=== PATIENT | male | born 1960 | race Caucasian/White ===

== ENCOUNTER → 2017-09-13 | Outpatient (CLI) | payer OTHER ==
[~2017-09-13] MED LIST: OXYC1TAB3 PO; [UNRECOGNIZED DRUG - REMARK]
--- NOTE | 2017-09-13 12:52 | DIAGNOSTIC IMAGING REPORT ---
ORBIT RADIOGRAPHS 3 VIEWS HISTORY: pre-MRI screening. COMPARISON: None. FINDINGS: There are no radiopaque foreign bodies identified within the orbits. IMPRESSION: No radiopaque foreign bodies identified within the orbits. Electronically signed by: Elroy Miller M.D. 09/13/2017 12:50 PM Dictated Date/Time: 09/13/2017 12:50 PM
--- NOTE | 2017-09-13 14:00 | DIAGNOSTIC IMAGING REPORT ---
R UPPER EXT JOINT WITHOUT CLINICAL HISTORY: 57 years-old Male with RIGHT SHOULDER. Chronic right shoulder pain with limited range of motion COMPARISON: Chest radiograph 08/24/2012. TECHNIQUE: Multiplanar, multi sequence MRI of the right shoulder was performed without intravenous contrast. FINDINGS: ROTATOR CUFF: There is a large full-thickness tear of the anterior, mid and posterior supraspinatus tendon fibers measuring up to 1.9 x 2.1 cm in transverse and AP dimension. There is mild retraction of the tendon fibers extending to level of the mid humeral head. There is moderate tendinosis of the infraspinatus tendon with likely reactive edema tracking along the myotendinous fibers. No high-grade partial or full-thickness infraspinatus tendon tear. There is mild irregularity of the bursal fibers infraspinatus. No full-thickness tear of the subscapularis tendon. On images 16 and 17 of series 6 there is intermediate grade intrasubstance tearing of the subscapularis extending towards the myotendinous junction. No significant atrophy of the rotator cuff musculature. BICEPS TENDON: The long head biceps tendon is intact. There is moderate tendinosis of the intra-articular portion long head biceps tendon. The biceps senia and anchor are intact. LABRUM: There is tearing of both the anterior and posterior portions of the superior labrum. There is a tear of the anteroinferior quadrant labrum as noted on image 20 series 4 with adjacent 5 x 4 x 8 mm paralabral cyst, image 21 series 4. GLENOHUMERAL JOINT: There is mild glenohumeral osteoarthritis with marginal spurring. Small joint effusion. No intra-articular loose body identified. ACROMIOCLAVICULAR JOINT: There is moderate AC joint osteoarthritis with marginal spurring and capsular hypertrophy. The acromium has a gently curved undersurface. No evidence of os acromiale. Moderate subacromial/subdeltoid bursitis. OUTLET SPACES: The suprascapular notch and quadrilateral space are without obstructing or space occupying lesions. BONE MARROW: No focal abnormality, fracture or marrow occupying lesion. SOFT TISSUES: The periarticular soft tissues are unremarkable. IMPRESSION: 1. Large full-thickness tear of the supraspinatus tendon involves the anterior, mid and posterior fibers extending into the conjoined fibers. There is mild retraction as above without muscular atrophy. 2. Moderate infraspinatus tendinosis. 3. Intermediate grade intrasubstance tear of the subscapularis tendon along the myotendinous junction. 4. Moderate long head biceps tendinosis without tear. 5. Mild glenohumeral osteoarthritis with multifocal tearing of the labrum. 8 mm paralabral cyst noted adjacent to the anteroinferior labral tear. 6. Small joint effusion with subacromial/subdeltoid bursitis. The above report was generated using voice recognition software. It may contain grammatical, syntax or spelling errors. Electronically signed by: Sharan Lemus M.D. 09/13/2017 1:58 PM Dictated Date/Time: 09/13/2017 1:38 PM
== END | disposition home or self-care (01) ==
LOC: C.RADBC 12:36
PROVIDERS: ATTEND Orthopaedic Surgery
DX: M75.101 Unspecified rotator cuff tear or rupture of right shoulder, not specified as traumatic (principal); M75.91 Shoulder lesion, unspecified, right shoulder; M25.411 Effusion, right shoulder

== ENCOUNTER → 2017-09-28 | Day surgery (SDC) | payer OTHER ==
[2017-09-18 08:46] VITALS: Ht 175.3 cm; Wt 90.0 kg
[~2017-09-28] VITALS: Ht 175.3 cm; Wt 90.0 kg
[~2017-09-28] MED LIST changes: +ATROPINE SULFATE 0.1 MG/ML 5ML SYR IV PRN; +BUPIVACAINE/EPINEPHRINE 0.25% 1:200,000 30 ML VIAL ONE; +BUPIVACAINE/EPINEPHRINE 0.5% MPF 1:200,000 30 ML VIAL ONE; +CEFAZOLIN 2000MG IV PUSH 10 ML IV SCH; +CRANPOW PO; +CYAN100020 PO; +DEXAMETHASONE SOD INJ 4 MG/ML VIAL ONE; +EpHEDrine SULFATE INJ 50 MG/ML AMP IV PRN; +EpINEphrine INJ 1MG/ML AMP 1 MG/ML AMP ONE; +FENTANYL CITRATE INJ 50 MCG/1 ML 2 ML VIAL IV PRN; +FENTANYL CITRATE INJ 50 MCG/1 ML 2 ML VIAL ONE; +GLUCTAB7 PO; +KETO10TA PO; +LACTATED RINGER'S 1000ML 1,000 ML IV SCH; +LIDOCAINE HCL 2% 2 ML VIAL (20MG/ML) ONE; +MAGN500C PO; +MELO-84 PO; +MIDAZOLAM HCL 1 MG/ML 2ML VIAL ONE; +MULTTAB58 PO; +OMEG10007 PO; +ONDANSETRON INJ 2 MG/ML 2 ML VIAL IV PRN; +ONDANSETRON INJ 2 MG/ML 2 ML VIAL ONE; +OXYC-57 PO; -OXYC1TAB3 PO; +OXYCODONE/ACETAMINOPHEN 5-325 TAB PO PRN; +PROMETHAZINE HCL INJ 6.25 MG in SODIUM CHLORIDE 0.9% 50ML 50 ML IV PRN; +PROPOFOL IV EMULSION 10 MG/ML 20 ML VIAL IV ONE; +PYRI100T4 PO; +SODIUM CHLORIDE 0.9% 1000ML 1,000 ML IV SCH; +TESTOSTERONE PO; +UNKNOWN MED PO; +VITA400C3 PO; +VITAMIN C PO; +[UNRECOGNIZED DRUG - OTHER] PO; -[UNRECOGNIZED DRUG - REMARK]
--- NOTE | 2017-09-28 10:52 | History & Physical Bridge - SC ---
H&P Re-Evaluation Bridge Note: I have examined the patient, reviewed the History & Physical and in the interval since the performance of the History & Physical I have noted the following changes of clinical significance: No changes noted
--- NOTE | 2017-09-28 13:36 | [facility] Post Operative Brief Note ---
Immediate Operative Summary Operative Date Sep 28, 2017. Pre-Operative Diagnosis Rotator Cuff Tear, Shoulder Pain Post-Operative Diagnosis same Procedure(s) Performed Right Sholder Arthroscopy Medium Rotator Cuff Repair Surgeon Dr Sebastian Clinical Psychologist Private Practice Surgeon(s) BRUCE Domínguez Estimated Blood Loss 5ml Findings as above Specimens none Complication(s) None Disposition Recovery Room / PACU
[2017-09-28 13:46] VITALS: TEMP 36.4
--- NOTE | 2017-09-28 13:46 | Discharge Instructions-SurgCtr ---
Discharge Instructions Date of Service Sep 28, 2017. Visit Reason for Visit: Rotator Cuff Tear, Shoulder Pain Discharge Discharge Diagnosis / Problem: SAME ABOVE Discharge Goals Goal(s): Decrease discomfort, Improve function Medications Stopped Medications Name(s): Vit B12, fish oil, mobic, glucosamine, multivitamin, vitamin e, vit b6, cranberry, vit c, and testosterone stopped-last doses 09/18/17 Restart Stopped Medication(s): MAY RESTART ALL ON 09/28/2017 Activity Recommendations Activity Limitations: as noted below Lifting Limitations: until after follow-up appointment Exercise/Sports Limitations: until after follow-up appointment Shower/Bathe: tomorrow Anesthesia . Post Anesthesia Instructions: If you have had General Anesthesia or IV Sedation: * Do not drive today. * Resume driving when surgeon permits. * Do not make important decisions or sign legal documents today. * Call surgeon for: 1. Temperature elevations greater than 101 degrees F. 2. Uncontrollable pain. 3. Excessive bleeding. 4. Persistent nausea and vomiting. 5. Medication intolerance (nausea, vomiting or rash). * For nausea and vomiting use only clear liquids such as: tea, soda, bouillon until nausea subsides, then gradually increase diet as tolerated. * If you have any concerns or questions, call your surgeon's office. If physician is unavailable and it is an emergency, call 911 or go to the nearest emergency room. . Instructions / Follow-Up Instructions / Follow-Up MEDICATIONS: * Resume previous medications unless instructed otherwise by your surgeon. * Always take pain medication on a full stomach or with food to avoid upset stomach. * Do not drink alcohol or drive while taking narcotics. * Ibuprofen or Tylenol may be taken if narcotic not needed. SPECIAL CARE INSTRUCTIONS: __ None _X_ Keep extremity elevated and iced x 48 hours; apply ice 20-30 minutes 8-10 times/day. May remove at night. __ Sling __24 hrs/day __ Remove at night _X_ Shoulder Immobilizer (MAY REMOVE AFTER 48 HOURS ONLY TO SHOWER AND FOR THERAPY) _X_ 24 hrs/day __ Remove at night _X_ Dressing __ Maintain until seen in office, may shower with plastic over site _X_ Remove dressings in 24-48 hours and then may shower _X_ Cover incisions with band-aids after showering __ Do not remove steri-strips Call physician if chills or temperature rises above 102 degrees or pain unrelieved by prescribed pain medications at . . Diet Recommendations Home Diet: no limitations Fluid Restriction: None Procedures Procedures Performed: Right Sholder Arthroscopy Medium Rotator Cuff Repair Pending Studies Studies pending at discharge: no Work Instructions Return To Work: after follow-up Lifting Limitations: NO LIFTING WITH RIGHT ARM Medical Emergencies . Who to Call and When: Medical Emergencies: If at any time you feel your situation is an emergency, please call 911 immediately. . Non-Emergent Contact Non-Emergency issues call your: Primary Care Provider Call Non-Emergent contact if: you have a fever, temperature is above 101.5 . . "Provider Documentation" section prepared by Chris Denton. .
--- NOTE | 2017-09-28 14:16 | OPERATIVE REPORT ---
DATE OF OPERATION: 09/28/2017 PREOPERATIVE DIAGNOSIS: Large right rotator cuff tear. POSTOPERATIVE DIAGNOSIS: Same. PROCEDURE: Right shoulder diagnostic arthroscopy with limited debridement, distal clavicle resection, acromioplasty and large rotator cuff repair. SURGEON: Dr. Pasha Sebastian. AIR SHOVEL OPERATOR: Eliseo Denton PA-C, whose assistance was necessary for positioning the arm and helping with instrumentation. ANESTHESIA: Sedation with a right interscalene nerve block. COMPLICATIONS: None. CONDITION: Stable to PACU. INDICATIONS: Alexei is a pleasant 57-year-old male who presented to my office with complaints of right shoulder pain. MRI and clinical examination were diagnostic for a large right rotator cuff tear. After failing conservative treatment, he elected to undergo arthroscopy. DESCRIPTION OF PROCEDURE: On 09/28/2017, he arrived at [facility] for the above procedure. He was seen in the preoperative holding area and the operative extremity was identified and signed. He was given appropriate antibiotic and a right interscalene nerve block. He was taken back to the operating room, laid on the table in supine position and put under basic sedation. The right shoulder was prepped and draped in sterile fashion. Time-out was done and the patient's operative extremity was properly identified. A scope was introduced into the posterior portal. Diagnostic arthroscopy showed no cartilage damage to the humeral head or the glenoid. There was some fraying of the anterior labrum. The biceps tendon was absent and had been traumatically tenotomized. The subscapularis was intact. There was a tear of the entire supraspinatus and the upper half of the infraspinatus. The remainder of the infraspinatus and teres minor were intact. An anterior portal was made. A shaver was used to do a limited debridement of the intraarticular structures. The scope was then put into the subacromial space. A lateral portal was made. A shaver was used to do a complete subacromial and subdeltoid bursectomy. An ablator was used to tease the coracoacromial ligament off the undersurface of the acromion and a 5-0 shanika was used to complete an acromioplasty of a Bigliani type 3 acromion. A shaver was used to remove any excess debris and attention was turned to the rotator cuff. An additional anterolateral portal was made and [place] cannulas were placed in each of the lateral portals. There was a large crescent shaped rotator cuff tear. The greater tuberosity was prepared with a ring curette and a microfracture. The rotator cuff was then fixed with an Arthrex SpeedBridge configuration using 4.75 mm BioComposite SwiveLock suture anchors and the FiberTape. This gave a nice knotless SpeedBridge repair. Multiple pictures were taken. Attention was then turned to the distal clavicle. Through an anterior portal, a shaver and ablator were used to skeletonize this clavicle. The distal 5 mm was then removed from the clavicle. Complete resection was checked under direct visualization. The scope was then placed into the glenohumeral joint and the articular margin of the rotator cuff had been restored. Pictures were taken. Arthroscopic instruments were removed from the shoulder. Portal sites were closed with 3-0 nylon. He was then placed in a soft dressing and an abduction arm sling. He was then extubated, transferred to a [facility] and taken to the postanesthesia care unit in stable condition. He tolerated the procedure well. I attest to the content of the Intraoperative Record and any orders documented therein. Any exception s are noted below.
[2017-09-28 14:19] VITALS: BP 131/85; PULSE 63; O2SAT 98
--- NOTE | 2017-09-28 14:23 | Anesthesiology Progress Note ---
Anesthesia Post Op Note Date & Time Sep 28, 2017 at 14:23 Vital Signs Pain Intensity: 0 Vital Signs Past 12 Hours Date Time Temp Pulse Resp B/P (MAP) Pulse Ox O2 Delivery O2 Flow Rate FiO2 09/28/17 14:19 63 16 131/85 (100) 98 Room Air 09/28/17 13:46 36.4 66 16 130/80 (97) 94 Room Air 09/28/17 12:21 74 14 98 09/28/17 12:21 74 09/28/17 12:16 60 09/28/17 12:16 59 0 153/91 97 09/28/17 12:11 57 12 163/102 98 09/28/17 12:11 58 09/28/17 12:10 178/110 09/28/17 12:06 0 09/28/17 12:01 63 0 09/28/17 11:56 61 0 09/28/17 11:51 58 0 09/28/17 11:46 58 0 09/28/17 09:10 36.6 68 16 125/84 (98) 96 Room Air Notes Mental Status: alert / awake / arousable, participated in evaluation Pt Amnestic to Procedure: Yes Nausea / Vomiting: adequately controlled Pain: adequately controlled Airway Patency, RR, SpO2: stable & adequate BP & HR: stable & adequate Hydration State: stable & adequate Anesthetic Complications: no major complications apparent Block working well in pacu
== END | disposition home or self-care (01) ==
LOC: X.SURG 08:53
PROVIDERS: ATTEND Orthopaedic Surgery
DX: M75.101 Unspecified rotator cuff tear or rupture of right shoulder, not specified as traumatic (principal); Z98.890 Other specified postprocedural states; M79.7 Fibromyalgia